=== PATIENT | male | born 1955 | race African-American/Black ===

== ENCOUNTER 2016-10-29 06:14 | Emergency (ER) | payer SELFPAY ==
[~2016-10-29 06:14] MED LIST: AMLO10 PO; AMLO5TAB22 PO; CARV12.5 PO; FURO1TAB60 PO; GLIP5TAB8 PO; HYDR50TA15 PO; LIPI40TA PO; NITR0.4S SL; POTA-243 PO
[2016-10-29 06:16] VITALS: BP 249/120; PULSE 104; RESP 18; TEMP 98.5; O2SAT 97
--- NOTE | 2016-10-29 09:18 | PD ---
HPI Chief Complaint: Edema Time Seen by Provider: 09:10 Travel History International Travel<30 days: No Contact w/Intl Traveler<30days: No Traveled to known affect area: No History of Present Illness HPI This is a 61-year-old male who has a history of hypertension who presents to the emergency department with swelling in his hands but his son noticed this morning, constant, moderate severity with no associated pain. He's been out of multiple blood pressure medications for the past several days. His blood pressure was high this morning. He denies any chest pain or shortness of breath. PFSH Past Medical History Cardiovascular Problems: Yes (HTN) Diabetes: Yes Immunizations Current: Yes Social History Alcohol Use: No Tobacco Use: No Substance Use: No Allergies-Medications (Allergen,Severity, Reaction): Coded Allergies: No Known Allergies (Unverified , 10/29/16) Reported Meds & Prescriptions Reported Meds & Active Scripts Active Reported Potassium Chloride CR (Potassium Chloride) 10 Meq Tab 10 Meq PO DAILY Hydralazine (Hydralazine HCl) 25 Mg Tab 50 Mg PO QID Take with a meal Furosemide 40 Mg Tab 40 Mg PO BID Glipizide 5 Mg Tab 5 Mg PO BIDAC Take 30 minutes before a meal Amlodipine (Amlodipine Besylate) 10 Mg Tab 10 Mg PO DAILY Review of Systems Except as stated in HPI: all other systems reviewed are Neg Physical Exam Narrative GENERAL:Well appearing, no acute distress SKIN: Warm and dry. HEAD: Atraumatic. Normocephalic. EYES: Pupils equal and round. No injection or drainage. ENT: Moist mucous membranes NECK: Trachea midline. CARDIOVASCULAR: Regular rate and rhythm. No murmur appreciated. RESPIRATORY: Clear to auscultation. Breath sounds equal bilaterally. GASTROINTESTINAL: Abdomen soft, non-tender, nondistended. MUSCULOSKELETAL: No obvious deformities. Swelling in bilateral hands. NEUROLOGICAL: Awake and alert. No obvious cranial nerve deficits. Moving all extremities. PSYCHIATRIC: Appropriate mood and affect; insight and judgment normal. Data Data Last Documented VS Vital Signs Date Time Temp Pulse Resp B/P Pulse Ox O2 Delivery O2 Flow Rate FiO2 10/29/16 09:31 90 16 195/91 98 Room Air 10/29/16 06:16 98.5 MDM Medical Decision Making Medical Screen Exam Complete: Yes Emergency Medical Condition: Yes Interpretation(s) Hypertensive Differential Diagnosis Arthritis, edema, hypertensive urgency Narrative Course This is a 61-year-old male who presents to the emergency department because he' s run out of his medications and he has some swelling in his hands. He is otherwise well-appearing with a normal neurologic exam. He is quite hypertensive with a blood pressure of 249/120. I will reinitiate him on his home blood pressure medications. He has no chest pain at this time. I think he can be discharged home. Diagnosis Primary Impression: Hypertension Qualified Code: I10 - Essential hypertension Patient Instructions: General Instructions Additional Instructions: If you develop severe chest pain, shortness of breath, sweating, lightheadedness , dizziness or difficulty breathing return to the emergency department immediately. Followup with your primary care physician in 2-3 days if your symptoms are not resolved. Med/Other Pt SpecificInfo: Prescription(s) given Scripts Glipizide 5 Mg Tab5 Mg PO DAILY #30 TAB Ref 0 Take 30 minutes before a meal Prov:Rosy Rousseau MD 10/29/16 Potassium Chloride ER 10 Meq Cap10 Meq PO DAILY #30 CAP Ref 0 Prov:Rosy Rousseau MD 10/29/16 Furosemide 40 Mg Tab40 Mg PO DAILY #30 TAB Ref 0 Prov:Rosy Rousseau MD 10/29/16 Amlodipine 10 Mg Tab10 Mg PO DAILY #30 TAB Ref 0 Prov:Rosy Rousseau MD 10/29/16 Disposition: 01 DISCHARGE HOME Condition: Stable Rosy Rousseau MD Oct 29, 2016 09:18
[2016-10-29] MEDS ORDERED: AMLO10TA2 PO ×2 (09:27→09:34)
[2016-10-29] MEDS ORDERED: GLIP5TAB8 PO ×2 (09:27→09:34)
[2016-10-29 09:31] VITALS: BP 195/91; PULSE 90; RESP 16; O2SAT 98
[2016-10-29] MEDS ORDERED: HYDR25TA35 PO (09:31)
[2016-10-29] MEDS ORDERED: POTA10TA8 PO (09:31)
[2016-10-29] MEDS ORDERED: FURO40TA PO ×2 (09:31→09:34)
[2016-10-29] MEDS ORDERED: POTA10CA PO (09:34)
[2016-11-16] MEDS ORDERED: AMLO10 PO (10:59)
[2016-11-16] MEDS ORDERED: POTA-243 PO (11:03)
[2016-11-16] MEDS ORDERED: LIPI40TA PO (11:03)
[2016-11-16] MEDS ORDERED: HYDR50TA15 PO (11:03)
[2016-11-23] MEDS ORDERED: LIPI40TA PO (08:48)
[2016-11-23] MEDS ORDERED: HYDR50TA15 PO (08:49)
[2016-11-25] MEDS ORDERED: GLIP5TAB8 PO (09:50)
[2016-11-25] MEDS ORDERED: CARV12.5 PO (09:50)
[2016-12-09] MEDS ORDERED: LISI40TA PO (11:24)
[2016-12-09] MEDS ORDERED: BAYETES (11:27)
[2016-12-09] MEDS ORDERED: FURO40TA PO (11:28)
[2017-01-13] MEDS ORDERED: HYDR50TA15 PO (11:25)
[2017-01-13] MEDS ORDERED: ATOR40TA16 PO (11:28)
[2017-01-15] MEDS ORDERED: FURO40TA PO (11:23)
[2017-01-15] MEDS ORDERED: CLON0.1T PO (11:40)
[2017-02-03] MEDS ORDERED: HYDR-3801 PO (11:20)
[2017-02-03] MEDS ORDERED: CLON0.1T PO (11:38)
[2017-02-03] MEDS ORDERED: CARV12.5 PO (11:40)
[2017-02-03] MEDS ORDERED: ATOR40TA16 PO (11:40)
[2017-02-17] MEDS ORDERED: POTA10TA2 PO (11:11)
[2017-02-17] MEDS ORDERED: HYDR-3801 PO (11:23)
== END 2016-10-29 10:23 | disposition home or self-care (01) ==
LOC: MERGE 06:14 → NEPE 06:14
DX: I10 Essential (primary) hypertension (principal); M79.89 Other specified soft tissue disorders; E11.9 Type 2 diabetes mellitus without complications
CPT/HCPCS: 99284

== ENCOUNTER → 2016-11-16 | Outpatient (CLI) | payer OTHER ==
[~2016-11-16] MED LIST changes: +ACET250T3 PO; +AMLO10TA2 PO; -AMLO5TAB22 PO; +ATOR40TA16 PO; +BAYETES; +BRIM0.2S4 EACH EYE; +CLON0.1T PO; +DORZ2SOL7 EACH EYE; +FURO40TA PO; +HYDR-3801 PO; +HYDR25TA35 PO; +LATA0.002 EACH EYE; +LISI40TA PO; +POTA10CA PO; +POTA10TA2 PO; +POTA10TA8 PO
[2016-11-16 11:56] LABS: AUTOMATED NEUTROPHIL # 9.4 TH/MM3 (1.8-7.7); BASOPHIL # 0.1 TH/MM3 (0-0.2); BASOPHIL % 0.8 % (0.0-2.0); EOSINOPHIL # 0.2 TH/MM3 (0-0.4); EOSINOPHIL % 1.5 % (0.0-4.0); HEMATOCRIT 33.7 % (39.0-51.0); LYMPH % 24.3 % (9.0-44.0); LYMPHOCYTE # 3.4 TH/MM3 (1.0-4.8); MEAN CELL VOLUME 81.5 FL (80.0-100.0); MEAN CORPUSCULAR HEMOGLOBIN 26.4 PG (27.0-34.0); MEAN CORPUSCULAR HGB CONC 32.4 % (32.0-36.0); MONO % 5.3 % (0.0-8.0); NEUT % 68.1 % (16.0-70.0); PLATELET COUNT 316 TH/MM3 (150-450); RED BLOOD COUNT 4.13 MIL/MM3 (4.50-5.90); RED CELL DISTRIBUTION WIDTH 16.7 % (11.6-17.2); WHITE BLOOD COUNT 13.9 TH/MM3 (4.0-11.0)
[2016-11-16 11:58] LABS: HEMO FLAGS AUTO DIFF
[2016-11-16 12:46] LABS: SCAN/DIFF AUTO DIFF CONFIRMED
[2016-11-16 12:54] LABS: ALKALINE PHOSPHATASE 99 U/L (45-117); ALT (GPT) 70 U/L (12-78); ANION GAP 8 MEQ/L (5-15); AST (GOT) 21 U/L (15-37); BICARBONATE 27.4 MEQ/L (21.0-32.0); BLOOD UREA NITROGEN 39 MG/DL (7-18); CHLORIDE 108 MEQ/L (98-107); GLOMERULAR FILTRATION RATE 34 ML/MIN (>89); GLUCOSE,FASTING 131 MG/DL (74-99); HDL CHOLESTEROL 39.5 MG/DL (40.0-60.0); LDL CHOLESTEROL 90 MG/DL (0-99); POTASSIUM 3.9 MEQ/L (3.5-5.1); SODIUM (NA) 143 MEQ/L (136-145); TOTAL BILIRUBIN ADULT 0.3 MG/DL (0.2-1.0)
[2016-11-16 13:20] LABS: HEMOGLOBIN A1a 1.2 %; HEMOGLOBIN A1b 0.9 %; HEMOGLOBIN Ao 81.4 %; HEMOGLOBIN F 1.1 %; HEMOGLOBIN LA1C 2.3 %; HEMOGLOBIN P3 4.8 %
== END ==
LOC: CLAB 11:38
PROVIDERS: ATTEND Family Medicine
DX: E11.9 Type 2 diabetes mellitus without complications (principal); I10 Essential (primary) hypertension; I50.9 Heart failure, unspecified; S37.009A Unspecified injury of unspecified kidney, initial encounter
CPT/HCPCS: 36415; 80053; 80061; 83036; 84443; 85025

== ENCOUNTER → 2016-11-25 | Outpatient (CLI) | payer OTHER ==
[2016-11-25 11:25] LABS: BICARBONATE 28.2 MEQ/L (21.0-32.0); POTASSIUM 3.6 MEQ/L (3.5-5.1)
== END ==
LOC: CLAB 10:27
PROVIDERS: ATTEND Family Medicine
DX: N28.9 Disorder of kidney and ureter, unspecified (principal)
CPT/HCPCS: 36415; 80048

== ENCOUNTER → 2016-11-30 | Outpatient (CLI) | payer OTHER ==
[~2016-11-30] MED LIST changes: -AMLO10 PO; -FURO1TAB60 PO; -LIPI40TA PO; -POTA10CA PO; -POTA10TA8 PO
== END ==
LOC: CLAB 15:42
PROVIDERS: ATTEND Family Medicine
DX: N28.9 Disorder of kidney and ureter, unspecified (principal); E11.9 Type 2 diabetes mellitus without complications
CPT/HCPCS: 84157

== ENCOUNTER → 2017-01-13 | Outpatient (CLI) | payer OTHER ==
[2017-01-13 12:36] LABS: BICARBONATE 26.7 MEQ/L (21.0-32.0); POTASSIUM 4.5 MEQ/L (3.5-5.1)
== END ==
LOC: CLAB 11:53
PROVIDERS: ATTEND Family Medicine
DX: N19 Unspecified kidney failure (principal)
CPT/HCPCS: 36415; 80069

== ENCOUNTER 2017-02-13 10:25 | Emergency (ER) | payer SELFPAY ==
[~2017-02-13] VITALS: Ht 190.5 cm; Wt 75.0 kg
[~2017-02-13 10:25] MED LIST changes: -ACET250T3 PO; -BRIM0.2S4 EACH EYE; -DORZ2SOL7 EACH EYE; -HYDR25TA35 PO; -HYDR50TA15 PO; -LATA0.002 EACH EYE; -POTA10TA2 PO
[2017-02-13 10:27] VITALS: BP 240/109; PULSE 92; RESP 24; TEMP 98.9; O2SAT 98
--- NOTE | 2017-02-13 10:51 | PD ---
HPI Chief Complaint: Eye Problems/Injury Time Seen by Provider: 10:50 Travel History International Travel<30 days: No Contact w/Intl Traveler<30days: No Traveled to known affect area: No History of Present Illness HPI 61-year-old male came to the emergency room with history of blindness. Patient says that he has been having vision issues on and off since last Wednesday. His son says that this morning he found his father on the floor crying saying that he cannot see anything. Patient has history of diabetes and hypertension. He was seen by an protozoologist 2 months ago he says and was told that nothing could be done until his blood sugar comes down. Patient has never had issues with blindness in the past. His blood pressure upon arrival was 225 systolic. Patient is not complaining of any pain. Does not appear to be in any significant distress. He says his vision is blurry. However when I asked him to cover his left eye patient said he saw complete darkness from his right eye. And when he covered his right eye he just saw a hand movement which he said it looked blurry. [facility] Past Medical History Narrative Medical List of his past medical, surgical, social and family history was reviewed from the nursing note. Cancer: No Cardiovascular Problems: Yes Congestive Heart Failure: Yes Diabetes: Yes Patient Takes Glucophage: Yes Diminished Hearing: No Endocrine: No Genitourinary: No Hypertension: Yes Immune Disorder: No Neurologic: No Psychiatric: No Reproductive: No Immunizations Current: Yes Sickle Cell Disease: No Past Surgical History Other Surgery: Yes (right leg ) Social History Alcohol Use: No Tobacco Use: No Substance Use: No Allergies-Medications (Allergen,Severity, Reaction): Coded Allergies: No Known Allergies (Verified , 02/15/17) Comments No known drug allergies. Reported Meds & Prescriptions Reported Meds & Active Scripts Active Brimonidine Opth Drops (Brimonidine Tartrate) 0.2% Soln 1 Drop EACH EYE TID Latanoprost Opth Drops (Latanoprost) 0.005% Drops 1 Drop EACH EYE HS Refrigerate until opened. Cosopt Opth Drops (Dorzolamide-Timolol Opth Drops) 22.3-6.8 Mg/Ml Soln 1 Drop EACH EYE BID Acetazolamide 250 Mg Tab 250 Mg PO TID Atorvastatin (Atorvastatin Calcium) 40 Mg Tab 40 Mg PO HS Coreg (Carvedilol) 12.5 Mg Tab 25 Mg PO Q12HR Clonidine (Clonidine HCl) 0.1 Mg Tab 0.1 Mg PO BID Lisinopril 40 Mg Tab 40 Mg PO DAILY Glipizide 5 Mg Tab 5 Mg PO BIDAC Take 30 minutes before a meal Nitrostat SL (Nitroglycerin) 0.4 Mg Subl 0.4 Mg SL Q5M Reported Hydralazine (Hydralazine HCl) 100 Mg Tab 50 Mg PO Q6HR Take with meals Amlodipine (Amlodipine Besylate) 10 Mg Tab 10 Mg PO DAILY Narrative Medication List of his home medications reviewed from the nursing note. Review of Systems Except as stated in HPI: all other systems reviewed are Neg Physical Exam Narrative GENERAL: Awake, alert, no obvious distress SKIN: Focused skin assessment warm/dry. HEAD: Atraumatic. Normocephalic. EYES: Right pupil is oval, 5 mm in diameter and nonreactive to light. Cornea and lens in the back appears hazy. Left pupil 3 mm reactive to light. No scleral icterus. No injection or drainage. Right eye has no light perception, left eye has hand movement perception ENT: No nasal bleeding or discharge. Mucous membranes pink and moist. Poor dentition, gingival hypertrophy NECK: Trachea midline. No JVD. CARDIOVASCULAR: Regular rate and rhythm. No murmur appreciated. RESPIRATORY: No accessory muscle use. Clear to auscultation. Breath sounds equal bilaterally. GASTROINTESTINAL: Abdomen soft, non-tender, nondistended. Hepatic and splenic margins not palpable. MUSCULOSKELETAL: No obvious deformities. No clubbing. No cyanosis. No edema. NEUROLOGICAL: Awake and alert. No obvious cranial nerve deficits. Motor grossly within normal limits. Normal speech. PSYCHIATRIC: Appropriate mood and affect; insight and judgment normal. Data Data Last Documented VS Vital Signs Date Time Temp Pulse Resp B/P Pulse Ox O2 Delivery O2 Flow Rate FiO2 02/13/17 12:39 69 18 191/94 98 Room Air 02/13/17 10:27 98.9 Orders Electrocardiogram (02/13/17 10:56) Basic Metabolic Panel (Bmp) (02/13/17 10:56) Complete Blood Count With Diff (02/13/17 10:56) Prothrombin Time / Inr (Pt) (02/13/17 10:56) Ecg Monitoring (02/13/17 10:56) Bilateral Bp Monitoring (02/13/17 10:56) Iv Access Insert/Monitor (02/13/17 10:56) Oximetry (02/13/17 10:56) Oxygen Administration (02/13/17 10:56) Sodium Chloride 0.9% Flush (Ns Flush) (02/13/17 11:00) Labetalol Inj (Trandate Inj) (02/13/17 11:00) Ct Brain W/O Iv Contrast(Rout) (02/13/17 ) Acetazolamide (Diamox) (02/13/17 11:15) Timolol 0.5% Opth Soln (Timoptic 0.5% Op (02/13/17 11:15) Mannitol Inj (Mannitol Inj) (02/13/17 11:30) Brimonidine 0.2% Opth Soln (Alphagan 0.2 (02/13/17 11:30) Dorzol-Timol 2-0.5% Opth Soln (Cosopt 2- (02/13/17 11:30) Latanoprost 0.005% Opth Soln (Xalatan 0. (02/13/17 12:15) Acetazolamide (Diamox) (02/13/17 12:15) Labs Laboratory Tests Test 02/13/17 11:17 White Blood Count 11.2 TH/MM3 Red Blood Count 3.84 MIL/MM3 Hemoglobin 10.7 GM/DL Hematocrit 31.8 % Mean Corpuscular Volume 82.9 FL Mean Corpuscular Hemoglobin 27.9 PG Mean Corpuscular Hemoglobin 33.6 % Concent Red Cell Distribution Width 14.7 % Platelet Count 325 TH/MM3 Mean Platelet Volume 7.6 FL Neutrophils (%) (Auto) 66.2 % Lymphocytes (%) (Auto) 24.4 % Monocytes (%) (Auto) 6.1 % Eosinophils (%) (Auto) 2.2 % Basophils (%) (Auto) 1.1 % Neutrophils # (Auto) 7.4 TH/MM3 Lymphocytes # (Auto) 2.7 TH/MM3 Monocytes # (Auto) 0.7 TH/MM3 Eosinophils # (Auto) 0.3 TH/MM3 Basophils # (Auto) 0.1 TH/MM3 CBC Comment DIFF FINAL Differential Comment Prothrombin Time 10.5 SEC Prothromb Time International 1.0 RATIO Ratio Sodium Level 145 MEQ/L Potassium Level 3.9 MEQ/L Chloride Level 112 MEQ/L Carbon Dioxide Level 28.0 MEQ/L Anion Gap 5 MEQ/L Blood Urea Nitrogen 23 MG/DL Creatinine 1.67 MG/DL Estimat Glomerular Filtration 51 ML/MIN Rate Random Glucose 112 MG/DL Calcium Level 9.2 MG/DL MDM Medical Decision Making Medical Screen Exam Complete: Yes Emergency Medical Condition: Yes Medical Record Reviewed: Yes Interpretation(s) Twelve-lead EKG was reviewed by me. Normal sinus rhythm, normal axis, LVH, LV strain. Heart rate of 86 bpm. Differential Diagnosis Angle-closure glaucoma, blindness, CVA Narrative Course 11:47 AM at this point the working diagnosis is angle-closure glaucoma especially of the right eye. The intraocular pressure in the right eye is between 60-64 and the intraocular pressure in the left eye is between 53-57. Patient is given IV mannitol, by mouth Diamox, Timolol eyedrops, Brimonidine eye drops and Dorzolamide eye drops both eyes. Currently there is no ophthalmology registered medical transcriptionist. I put a call out to the transfer center at [facility] expecting to transfer this patient emergently. Awaiting the transfer center to get me a hold of their protozoologist. Patient was also given IV labetalol to bring the blood pressure down. 12:46 PM I discussed the case at length with Dr. Quintero who is the protozoologist registered medical transcriptionist at [facility] today. As per him patient has probably completely lost his vision permanently from his right eye after he listened to the whole case. As per him this has been probably going on for years and acutely worsened. He said it was a tragic case but he would be happy to see this patient in his office today if the family can drive him to [place]. He gave his cell phone number and his office address and asked to be called before the patient comes in. He happily recommended not to transfer this patient since going to the emergency room will not achieve much and delay care. In case the family cannot bring him today, he said it was okay to have the patient be sent home with prescription medication that he gave a list of and follow-up on Wednesday. The protozoologist Dr. Rodney Baker will have her office open on Wednesday and he was okay with him following up with her locally. I gave this option to the son who just told me that he would prefer to drive the patient to see this protozoologist today. I will give him Dr. San's phone number and address of the office and I have asked him to call the protozoologist while he is on his way there. Patient will be discharged home on the prescription recommended by the protozoologist. However patient has renal insufficiency and acetazolamide might be limited in this circumstance. 1:31 PM repeat pressure in both eyes was 50 by Ananth-Pen. Procedures EKG Prior to Arrival: No Physician Communication Physician Communication Dr. San Diagnosis Primary Impression: Blindness of both eyes Additional Impressions: Acute angle-closure glaucoma, bilateral Angle-closure glaucoma, severe stage Malignant hypertension Renal insufficiency Referrals: Primary Care Physician Additional Instructions: Please follow-up with protozoologist Dr. Quintero in [place]. His cell phone number is [phone]. His office address is [address] [place] [address] please call his cell phone number before arriving so that he can be present in the office. Get the prescriptions filled that have been given to you. Med/Other Pt SpecificInfo: Prescription(s) given Scripts Brimonidine Opth Drops 0.2% Soln1 Drop EACH EYE TID #1 BOTTLE Ref 0 Prov:Anibal Haines MD 02/13/17 Latanoprost Opth Drops 0.005% Drops1 Drop EACH EYE HS #2.5 ML Ref 0 Refrigerate until opened. Prov:Anibal Haines MD 02/13/17 Dorzolamide-Timolol Opth Drops (Cosopt Opth Drops)22.3-6.8 Mg/Ml Soln1 Drop EACH EYE BID #1 BOTTLE Ref 0 Prov:Anibal Haines MD 02/13/17 Acetazolamide 250 Mg Ofm862 Mg PO TID #90 TAB Ref 0 Prov:Anibal Haines MD 02/13/17 Disposition: 01 DISCHARGE HOME Condition: Stable Anibal Haines MD Feb 13, 2017 10:50
[2017-02-13] MEDS ORDERED: SODIUM CHLORIDE 0.9% FLUSH 10 ML FLUSH IVF PRN (11:00)
[2017-02-13] MEDS ORDERED: LABETALOL HCL 100 MG/20 ML VIAL IV PUSH ONE (11:00)
[2017-02-13 11:14] VITALS: BP 181/86; PULSE 84; RESP 16; O2SAT 98
[2017-02-13] MEDS ORDERED: acetaZOLAMIDE 250 MG TAB PO ONE ×2 (11:15→12:15)
[2017-02-13] MEDS ORDERED: TIMOLOL MALEATE 0.5% OPHT SOLN 5 ML BTL RIGHT EYE ONE (11:15)
[2017-02-13 11:25] LABS: AUTOMATED NEUTROPHIL # 7.4 TH/MM3 (1.8-7.7); BASOPHIL # 0.1 TH/MM3 (0-0.2); BASOPHIL % 1.1 % (0.0-2.0); EOSINOPHIL # 0.3 TH/MM3 (0-0.4); EOSINOPHIL % 2.2 % (0.0-4.0); HEMATOCRIT 31.8 % (39.0-51.0); HEMO FLAGS DIFF FINAL; LYMPH % 24.4 % (9.0-44.0); LYMPHOCYTE # 2.7 TH/MM3 (1.0-4.8); MEAN CELL VOLUME 82.9 FL (80.0-100.0); MEAN CORPUSCULAR HEMOGLOBIN 27.9 PG (27.0-34.0); MEAN CORPUSCULAR HGB CONC 33.6 % (32.0-36.0); MONO % 6.1 % (0.0-8.0); NEUT % 66.2 % (16.0-70.0); PLATELET COUNT 325 TH/MM3 (150-450); RED BLOOD COUNT 3.84 MIL/MM3 (4.50-5.90); RED CELL DISTRIBUTION WIDTH 14.7 % (11.6-17.2); WHITE BLOOD COUNT 11.2 TH/MM3 (4.0-11.0)
[2017-02-13] MEDS ORDERED: DORZOLAMIDE/TIMOLOL OPTH SOLN 10 ML BTL EACH EYE ONE (11:30)
[2017-02-13] MEDS ORDERED: BRIMONIDINE TARTRATE 0.2% OPHT SOLN 5 ML BTL EACH EYE ONE (11:30)
[2017-02-13] MEDS ORDERED: MANNITOL 12.5 GM/50 ML VIAL IV ONE (11:30)
[2017-02-13 11:39] LABS: PROTHROMBIN TIME - PATIENT 10.5 SEC (9.8-11.6)
[2017-02-13 11:45] VITALS: BP 177/86; PULSE 79; RESP 18; O2SAT 98
[2017-02-13 12:07] VITALS: BP 182/87; PULSE 72; RESP 18; O2SAT 99
[2017-02-13] MEDS ORDERED: LATANOPROST 0.005% OPHT SOLN 2.5 ML BTL EACH EYE ONE (12:15)
[2017-02-13 12:20] LABS: POTASSIUM 3.9 MEQ/L (3.5-5.1)
[2017-02-13 12:37] VITALS: BP 209/98; PULSE 68; RESP 18; O2SAT 99
[2017-02-13 12:39] VITALS: BP 191/94; PULSE 69; RESP 18; O2SAT 98
[2017-02-13] MEDS ORDERED: ACET250T3 PO (12:55)
[2017-02-13] MEDS ORDERED: BRIM0.2S4 EACH EYE (12:55)
[2017-02-13] MEDS ORDERED: DORZ2SOL7 EACH EYE (12:55)
[2017-02-13] MEDS ORDERED: LATA0.002 EACH EYE (12:55)
--- NOTE | 2017-02-13 12:59 | EKG ---
Date Performed: 02/13/2017 Time Performed: 11:05:28 PTAGE: 61 years EKG: Sinus rhythm LEFT VENTRICULAR HYPERTROPHY AND ST-T CHANGE ABNORMAL ECG PREVIOUS TRACING : 08/16/2016 18.22 compared to the previous EKG no significant change DOCTOR: Hector Arana Interpretating Date/Time 02/13/2017 12:57:57
--- NOTE | 2017-02-13 13:10 | RADRPT ---
EXAM DATE/TIME: 02/13/2017 12:12 [facility] COMPARISON: No previous studies available for comparison. INDICATIONS : Vision changes. RADIATION DOSE: 56.35 CTDIvol (mGy) MEDICAL HISTORY : Hypertension. Diabetes mellitus type 2. SURGICAL HISTORY : None. ENCOUNTER: Initial ACUITY: 1 day PAIN SCALE: 0/10 LOCATION: cranial TECHNIQUE: Multiple contiguous axial images were obtained of the head. Using automated exposure control and adj ustment of the mA and/or kV according to patient size, radiation dose was kept as low as reasonably a chievable to obtain optimal diagnostic quality images. FINDINGS: CEREBRUM: Ventricles are normal in size. There is mild periventricular white matter low attenuation. There is c alcification along the anterior falx cerebri. No evidence of midline shift, mass lesion, hemorrhage or acute infarction. No extra-axial fluid collections are seen. POSTERIOR FOSSA: The cerebellum and brainstem demonstrate no abnormality. The 4th ventricle is midline. The cerebell opontine angle is unremarkable. EXTRACRANIAL: Visualized sinuses are clear. There is a subcutaneous soft tissue density mass along the right nasal bridge and medial to the right globe. It measures 1.4 x 1.2 cm. It causes no abnormality in the adjac ent bone. SKULL: The calvaria is intact. No evidence of skull fracture. CONCLUSION: 1. No acute intracranial abnormality is identified. There is mild periventricular white matter low at tenuation characteristic of chronic microvascular ischemia. 2. There is a subcutaneous soft tissue mass medial to the right orbit measuring up to 14 mm. Imaging features are nonspecific. It is not causing any invasion nor adjacent changes to the bone. Margarito Lopez MD on February 13, 2017 at 13:03 Board Certified Radiologist. This report was verified electronically.
[2017-02-17] MEDS ORDERED: POTA10TA2 PO (11:11)
[2017-02-17] MEDS ORDERED: HYDR-3801 PO (11:23)
== END 2017-02-13 13:46 | disposition home or self-care (01) ==
LOC: NEPD 10:25
DX: H54.0 Blindness, both eyes (principal); H40.213 Acute angle-closure glaucoma, bilateral; I10 Essential (primary) hypertension; N28.9 Disorder of kidney and ureter, unspecified; R94.31 Abnormal electrocardiogram [ECG] [EKG]; I50.9 Heart failure, unspecified; E11.8 Type 2 diabetes mellitus with unspecified complications
CPT/HCPCS: 70450; 80048; 85025; 85610; 93005; 96374; 96375; 99285; J2150

== ENCOUNTER → 2017-05-27 | Outpatient (CLI) | payer OTHER ==
[~2017-05-27] MED LIST changes: +ACET250T3 PO; -BAYETES; +BRIM0.2S4 EACH EYE; -CLON0.1T PO; +DORZ2SOL7 EACH EYE; -FURO40TA PO; +HYDR12.57 PO; +LATA0.002 EACH EYE; -POTA-243 PO; +POTA10TA2 PO
[2017-05-27 12:58] LABS: ANION GAP 7 MEQ/L (5-15); BICARBONATE 20.2 MEQ/L (21.0-32.0); BLOOD UREA NITROGEN 19 MG/DL (7-18); CHLORIDE 117 MEQ/L (98-107); GLOMERULAR FILTRATION RATE 49 ML/MIN (>89); GLUCOSE,FASTING 99 MG/DL (74-99); POTASSIUM 3.6 MEQ/L (3.5-5.1); SODIUM (NA) 144 MEQ/L (136-145)
[2017-05-27 13:00] LABS: ALT (GPT) 22 U/L (12-78); AST (GOT) 11 U/L (15-37)
[2017-05-27 13:02] LABS: ALKALINE PHOSPHATASE 86 U/L (45-117); HDL CHOLESTEROL 42.4 MG/DL (40.0-60.0); LDL CHOLESTEROL 72 MG/DL (0-99); TOTAL BILIRUBIN ADULT 0.4 MG/DL (0.2-1.0)
[2017-05-27 16:16] LABS: HEMOGLOBIN A1b 1.5 %; HEMOGLOBIN Ao 85.3 %; HEMOGLOBIN P3 5.4 %
== END ==
LOC: CLAB 12:05
PROVIDERS: ATTEND Nurse Practitioner Family
DX: E11.9 Type 2 diabetes mellitus without complications (principal); N18.9 Chronic kidney disease, unspecified; E78.5 Hyperlipidemia, unspecified
CPT/HCPCS: 36415; 80053; 80061; 83036

== ENCOUNTER 2017-07-13 15:13 | Emergency (ER) | payer OTHER ==
[2017-07-13] VITALS (7 sets, daily range): BP systolic 182–210; BP diastolic 88–111; PULSE 89–111; RESP 12–18; TEMP 98.2–98.7; O2SAT 99–100
[~2017-07-13 15:13] MED LIST changes: -POTA10TA2 PO
[2017-07-13] MEDS ORDERED: IOHEXOL 350 MG/ML 10 ML VIAL (for RAD DIAG) IVCONTRAST ONE (15:14)
[2017-07-13] MEDS ORDERED: hydrALAZINE HCL 20 MG/ML VIAL IV PUSH ONE (16:00)
--- NOTE | 2017-07-13 16:24 | RADRPT ---
EXAM DATE/TIME: 07/13/2017 15:57 [facility] COMPARISON: CHEST SINGLE AP, August 16, 2016, 6:00. INDICATIONS : Chest pain. MEDICAL HISTORY : Congestive heart failure. Hypertension. Dsypnea. SURGICAL HISTORY : None. ENCOUNTER: Initial ACUITY: 1 day PAIN SCORE: 4/10 LOCATION: Bilateral chest FINDINGS: A single view of the chest demonstrates the lungs to be symmetrically aerated without evidence of mas s, infiltrate or effusion. The cardiomediastinal contours are unremarkable. Osseous structures are intact. CONCLUSION: No acute disease. Michael Sheffield Jr., MD on July 13, 2017 at 16:22 Board Certified Radiologist. This report was verified electronically.
[2017-07-13 16:34] LABS: AUTOMATED NEUTROPHIL # 8.2 TH/MM3 (1.8-7.7); BASOPHIL # 0.1 TH/MM3 (0-0.2); BASOPHIL % 0.4 % (0.0-2.0); EOSINOPHIL # 0.1 TH/MM3 (0-0.4); EOSINOPHIL % 0.9 % (0.0-4.0); HEMATOCRIT 34.9 % (39.0-51.0); HEMO FLAGS DIFF FINAL; LYMPH % 27.4 % (9.0-44.0); LYMPHOCYTE # 3.4 TH/MM3 (1.0-4.8); MEAN CELL VOLUME 88.1 FL (80.0-100.0); MEAN CORPUSCULAR HEMOGLOBIN 29.7 PG (27.0-34.0); MEAN CORPUSCULAR HGB CONC 33.7 % (32.0-36.0); MONO % 5.8 % (0.0-8.0); NEUT % 65.5 % (16.0-70.0); PLATELET COUNT 339 TH/MM3 (150-450); RED BLOOD COUNT 3.96 MIL/MM3 (4.50-5.90); RED CELL DISTRIBUTION WIDTH 15.8 % (11.6-17.2); WHITE BLOOD COUNT 12.5 TH/MM3 (4.0-11.0)
--- NOTE | 2017-07-13 16:37 | RADRPT ---
EXAM DATE/TIME: 07/13/2017 16:05 [facility] COMPARISON: CT BRAIN W/O CONTRAST, February 13, 2017, 12:12. INDICATIONS : Patient complains of headache. RADIATION DOSE: 56.35 CTDIvol (mGy) MEDICAL HISTORY : Cardiovascular disease. Congestive heart failure. Hypertension.AAA, diabetic SURGICAL HISTORY : None. ENCOUNTER: Initial ACUITY: 1 day PAIN SCALE: 5/10 LOCATION: cranial TECHNIQUE: Multiple contiguous axial images were obtained of the head. Using automated exposure control and adj ustment of the mA and/or kV according to patient size, radiation dose was kept as low as reasonably a chievable to obtain optimal diagnostic quality images. DICOM format image data is available electro nically for review and comparison. FINDINGS: CEREBRUM: The ventricles are normal for age. No evidence of midline shift, mass lesion, hemorrhage or acute in farction. No extra-axial fluid collections are seen. POSTERIOR FOSSA: The cerebellum and brainstem are intact. The 4th ventricle is midline. The cerebellopontine angle i s unremarkable. EXTRACRANIAL: The visualized portion of the orbits is intact. SKULL: The calvaria is intact. No evidence of skull fracture. CONCLUSION: 1. No acute intracranial abnormality identified. Dimas Hennessy MD on July 13, 2017 at 16:21 Board Certified Radiologist. This report was verified electronically.
[2017-07-13 17:33] LABS: ANION GAP 11 MEQ/L (5-15); AST (GOT) 10 U/L (15-37); BICARBONATE 19.5 MEQ/L (21.0-32.0); BLOOD UREA NITROGEN 22 MG/DL (7-18); CHLORIDE 114 MEQ/L (98-107); GLOMERULAR FILTRATION RATE 63 ML/MIN (>89); POTASSIUM 3.1 MEQ/L (3.5-5.1); SODIUM (NA) 144 MEQ/L (136-145)
[2017-07-13 17:39] LABS: ALKALINE PHOSPHATASE 75 U/L (45-117); ALT (GPT) 27 U/L (12-78); TOTAL BILIRUBIN ADULT 0.3 MG/DL (0.2-1.0)
[2017-07-13] MEDS ORDERED: HYDR-3799 PO (19:30)
[2017-07-13] MEDS ORDERED: AMLO10TA2 PO (19:30)
--- NOTE | 2017-07-13 19:30 | PD ---
HPI Chief Complaint: Headache Time Seen by Provider: 15:46 Travel History International Travel<30 days: No Contact w/Intl Traveler<30days: No Traveled to known affect area: No History of Present Illness HPI This is a 61-year-old male who presents to the emergency department with nausea and vomiting that started last evening, intermittent, moderate severity associated with some pain in his neck has persisted till this morning. Currently he feels back to normal. He denies any abdominal pain, fevers or chills. He can't tell me what blood pressure medications he takes or if he filled them recently. He denies any recent fevers or chills. He's been having normal bowel movements. PFSH Past Medical History Cancer: No Cardiovascular Problems: Yes (CAD; [place]) Congestive Heart Failure: Yes Diabetes: Yes Patient Takes Glucophage: No Diminished Hearing: No Endocrine: No Genitourinary: No Hypertension: Yes Immune Disorder: No Neurologic: No Psychiatric: No Reproductive: No Immunizations Current: Yes Sickle Cell Disease: No ?: Not Past Surgical History Other Surgery: Yes (right leg ) Social History Alcohol Use: No Tobacco Use: No Substance Use: No Allergies-Medications (Allergen,Severity, Reaction): Coded Allergies: No Known Allergies (Verified , 06/04/17) Reported Meds & Prescriptions Reported Meds & Active Scripts Active Lisinopril 40 Mg Tab 40 Mg PO DAILY Atorvastatin (Atorvastatin Calcium) 40 Mg Tab 40 Mg PO HS Coreg (Carvedilol) 12.5 Mg Tab 25 Mg PO Q12HR Glipizide 5 Mg Tab 5 Mg PO BIDAC Take 30 minutes before a meal Amlodipine (Amlodipine Besylate) 10 Mg Tab 10 Mg PO DAILY Hydrochlorothiazide 12.5 Mg Cap 12.5 Mg PO BID Acetazolamide 250 Mg Tab 250 Mg PO QID Brimonidine Opth Drops (Brimonidine Tartrate) 0.2% Soln 1 Drop EACH EYE TID Latanoprost Opth Drops (Latanoprost) 0.005% Drops 1 Drop EACH EYE HS Refrigerate until opened. Cosopt Opth Drops (Dorzolamide-Timolol Opth Drops) 22.3-6.8 Mg/Ml Soln 1 Drop EACH EYE BID Nitrostat SL (Nitroglycerin) 0.4 Mg Subl 0.4 Mg SL Q5M Reported Hydralazine (Hydralazine HCl) 100 Mg Tab 50 Mg PO Q6HR Take with meals Review of Systems Except as stated in HPI: all other systems reviewed are Neg Physical Exam Narrative GENERAL: Frail male older appearing than stated age. SKIN: Focused skin assessment warm and dry. HEAD: Atraumatic. Normocephalic. EYES: Pupils equal and round. No injection or drainage. ENT: Moist mucous membranes NECK: Trachea midline. CARDIOVASCULAR: Regular rate and rhythm. No murmur appreciated. RESPIRATORY: Clear to auscultation. Breath sounds equal bilaterally. GASTROINTESTINAL: Abdomen soft, non-tender, nondistended. MUSCULOSKELETAL: No obvious deformities. NEUROLOGICAL: Awake and alert. No obvious cranial nerve deficits. Moving all extremities. PSYCHIATRIC: Appropriate mood and affect; insight and judgment normal. Data Data Last Documented VS Vital Signs Date Time Temp Pulse Resp B/P (MAP) Pulse Ox O2 Delivery O2 Flow Rate FiO2 07/13/17 16:53 90 14 182/88 (119) 100 Room Air 07/13/17 15:40 98.3 Orders Orders Electrocardiogram (07/13/17 15:54) Complete Blood Count With Diff (07/13/17 15:54) Comprehensive Metabolic Panel (07/13/17 15:54) Troponin I (07/13/17 15:54) Chest, Single Ap (07/13/17 15:54) Ct Brain W/O Iv Contrast(Rout) (07/13/17 ) Lipase (07/13/17 15:54) Hydralazine Inj (Apresoline Inj) (07/13/17 16:00) Cta Thor Abd Aorta W Iv C W3d (07/13/17 ) Labs Laboratory Tests Test 07/13/17 15:30 07/13/17 16:52 White Blood Count 12.5 TH/MM3 Red Blood Count 3.96 MIL/MM3 Hemoglobin 11.7 GM/DL Hematocrit 34.9 % Mean Corpuscular Volume 88.1 FL Mean Corpuscular Hemoglobin 29.7 PG Mean Corpuscular Hemoglobin Concent 33.7 % Red Cell Distribution Width 15.8 % Platelet Count 339 TH/MM3 Mean Platelet Volume 9.1 FL Neutrophils (%) (Auto) 65.5 % Lymphocytes (%) (Auto) 27.4 % Monocytes (%) (Auto) 5.8 % Eosinophils (%) (Auto) 0.9 % Basophils (%) (Auto) 0.4 % Neutrophils # (Auto) 8.2 TH/MM3 Lymphocytes # (Auto) 3.4 TH/MM3 Monocytes # (Auto) 0.7 TH/MM3 Eosinophils # (Auto) 0.1 TH/MM3 Basophils # (Auto) 0.1 TH/MM3 CBC Comment DIFF FINAL Differential Comment Blood Urea Nitrogen 22 MG/DL Creatinine 1.39 MG/DL Random Glucose 126 MG/DL Total Protein 6.9 GM/DL Albumin 3.0 GM/DL Calcium Level 8.7 MG/DL Alkaline Phosphatase 75 U/L Aspartate Amino Transf (AST/SGOT) 10 U/L Alanine Aminotransferase (ALT/SGPT) 27 U/L Total Bilirubin 0.3 MG/DL Sodium Level 144 MEQ/L Potassium Level 3.1 MEQ/L Chloride Level 114 MEQ/L Carbon Dioxide Level 19.5 MEQ/L Anion Gap 11 MEQ/L Estimat Glomerular Filtration Rate 63 ML/MIN Troponin I 0.03 NG/ML Lipase 116 U/L MDM Medical Decision Making Medical Screen Exam Complete: Yes Emergency Medical Condition: Yes Interpretation(s) Afebrile, tachycardic, hypertensive Leukocytosis Mild anemia Mild hypokalemia Troponin is normal Chest x-rays reassuring CT of the head is normal Differential Diagnosis Subarachnoid hemorrhage, intracranial hemorrhage, electrolyte abnormality, hypertensive urgency, hypertensive emergency Narrative Course This is a 61-year-old male who presents to the emergency department with atypical symptoms of nausea, vomiting, headache and neck pain. CT was obtained which was reassuring. He was placed on a monitor and an IV was established. Labs are reassuring. He was given a dose of hydralazine which he takes at home. His blood pressure improved. Given the atypical nature of his symptoms I ordered a CTA to rule out aortic dissection. If this is reassuring at think the patient can be discharged home and we can attribute his symptoms to hypertensive urgency. Patient will be prescribed his home blood pressure medications and was given a referral to [facility]. Diagnosis Primary Impression: Hypertensive urgency Patient Instructions: General Instructions Additional Instructions: If you develop severe chest pain, shortness of breath, sweating, lightheadedness , dizziness or difficulty breathing return to the emergency department immediately. Followup with your primary care physician in 2-3 days if your symptoms are not resolved. Med/Other Pt SpecificInfo: Prescription(s) given Scripts Hydralazine HCl (Hydralazine HCl) 25 Mg Tablet 50 MG PO QID for Blood Pressure Management, #120 TAB 0 Refills Prov: Rosy Rousseau MD 07/13/17 Amlodipine (Amlodipine) 10 Mg Tab 10 MG PO DAILY for Blood Pressure Management, #30 TAB 0 Refills Prov: Rosy Rousseau MD 07/13/17 Disposition: 01 DISCHARGE HOME Condition: Stable Roys Rousseau MD Jul 13, 2017 19:30
--- NOTE | 2017-07-13 20:54 | RADRPT ---
EXAM DATE/TIME: 07/13/2017 19:09 [facility] COMPARISON: No previous studies available for comparison. INDICATIONS : Posterior headache radiating to right neck IV CONTRAST: 99 cc Omnipaque 350 (iohexol) IV RADIATION DOSE: 14.53 CTDIvol (mGy) MEDICAL HISTORY : Cardiovascular disease. Congestive heart failure. Hypertension.Aneurysm,afib,dvt,diabetes SURGICAL HISTORY : None. ENCOUNTER: Initial ACUITY: 1 day PAIN SCALE: 6/10 LOCATION: Aorta gram TECHNIQUE: Volumetric scanning was performed using a multi-row detector CT scanner. The data was post processed with a variety of visualization algorithms including full volume maximum intensity projection, multi -planar sliding thin slab reformation, curved planar reformation, and surface rendering techniques. Using automated exposure control and adjustment of the mA and/or kV according to patient size, radiat ion dose was kept as low as reasonably achievable to obtain optimal diagnostic quality images. DICOM format image data is available electronically for review and comparison. FINDINGS: LUNGS: There is no consolidation or pneumothorax. No concerning pulmonary nodule is visualized. No pleural fluid is present. MEDIASTINUM: No abnormally enlarged lymph nodes by CT criteria. No axillary or hilar abnormalities are identified. ABDOMEN: The liver and spleen are free of focal defects. The gallbladder and pancreas demonstrate no abnormali ty. The adrenal glands are normal. The kidneys demonstrate no evidence of solid renal mass or hydrone phrosis. No free fluid or abdominal masses are identified. No para-aortic adenopathy is seen. PELVIS: No evidence of free fluid or pelvic mass. No abnormally enlarged inguinal or retroperitoneal lymph no elsy are present. The bladder is unremarkable. Prostatic calcifications are present. THORACIC AORTA: The thoracic aortic root is normal with normal branching of the great vessels. There is no evidence of aneurysm or dissection. ABDOMINAL AORTA: The aorta is normal in caliber without aneurysm or dissection. The renal arteries are patent bilater ally. The proximal celiac and superior mesenteric arteries are patent and normal in diameter. PELVIC VESSELS: There is atherosclerotic calcifications without significant stenosis at the common iliac arteries fernie aterally. The internal iliac and external iliac vessels are patent without aneurysm or stenosis. CONCLUSION: Mild atherosclerotic calcifications at the common iliac arteries. An area of significant stenosis or dissection is not seen throughout the chest, abdomen, or pelvis. Margarito Cramer MD on July 13, 2017 at 20:44 Board Certified Radiologist. This report was verified electronically.
--- NOTE | 2017-07-13 21:32 | EKG ---
Date Performed: 07/13/2017 Time Performed: 15:46:37 PTAGE: 61 years EKG: Sinus rhythm LEFT VENTRICULAR HYPERTROPHY AND ST-T CHANGE ABNORMAL ECG Compared to prior tracing no significant c missy DOCTOR: Nery Buckner Interpretating Date/Time 07/13/2017 21:31:07
[2017-07-13] MEDS ORDERED: hydrALAZINE HCL 25 MG TAB PO ONE (22:00)
[2017-07-13] MEDS ORDERED: CARVEDILOL 12.5 MG TAB PO ONE (22:00)
== END 2017-07-13 22:30 | disposition home or self-care (01) ==
LOC: NEPC 15:13
DX: I16.0 Hypertensive urgency (principal); R11.2 Nausea with vomiting, unspecified; M54.2 Cervicalgia; R00.0 Tachycardia, unspecified; D64.9 Anemia, unspecified; E87.6 Hypokalemia; I25.10 Atherosclerotic heart disease of native coronary artery without angina pectoris; I51.7 Cardiomegaly; R94.31 Abnormal electrocardiogram [ECG] [EKG]
CPT/HCPCS: 70450; 71010; 71275; 74174; 80053; 83690; 84484; 85025; 93005; 96374; 99285; J0360; Q9967

== ENCOUNTER 2017-10-12 11:27 | Emergency (ER) | payer MEDICAID, OTHER ==
[~2017-10-12] VITALS: Ht 190.5 cm; Wt 68.0 kg
[~2017-10-12 11:27] MED LIST changes: +HYDR-3799 PO
[2017-10-12 11:28] VITALS: BP 245/116; PULSE 109; RESP 18; TEMP 99.1; O2SAT 99
[2017-10-12 11:51] VITALS: BP 243/116; PULSE 104; RESP 28; O2SAT 99
[2017-10-12] MEDS ORDERED: CORE25TA PO (12:00)
[2017-10-12] MEDS ORDERED: SODIUM CHLOR 0.9% 1000 ML INJ 1,000 ML IV ONE (12:09)
[2017-10-12] MEDS ORDERED: ONDANSETRON HCL 4 MG/2 ML VIAL IM ONE (12:15)
[2017-10-12] MEDS ORDERED: cloNIDine HCL 0.2 MG TAB PO ONE (12:15)
--- NOTE | 2017-10-12 12:31 | PD ---
HPI Chief Complaint: Headache Time Seen by Provider: 12:02 Travel History International Travel<30 days: No Contact w/Intl Traveler<30days: No Traveled to known affect area: No History of Present Illness HPI 62-year-old male presents emergency department with his son complaining of very high blood pressure and headache that started last night while patient was lying in bed. States that as he was lying in bed he developed a headache on his left frontoparietal region and eye that was severe. He is also complaining of nausea without vomiting. Denies fever, chills, chest pain, shortness of breath. He denies dizziness, weakness, abdominal pain. Patient is blind so he does not complain of visual changes. Patient states that this has been the worst headache that has had but does not describe this as a thunderclap. He says he takes lisinopril and carvedilol for his blood pressure. He is unsure of the other medications that he takes. Patient states compliance with medications and his son administers them. PFSH Past Medical History Cancer: No Cardiovascular Problems: Yes Congestive Heart Failure: Yes Diabetes: Yes Patient Takes Glucophage: Yes (in am today ) Diminished Hearing: No Endocrine: No Genitourinary: No Hypertension: Yes Immune Disorder: No Neurologic: No Psychiatric: No Reproductive: No Immunizations Current: Yes Sickle Cell Disease: No Past Surgical History Other Surgery: Yes (right leg ) Social History Alcohol Use: No Tobacco Use: No Substance Use: No Allergies-Medications (Allergen,Severity, Reaction): Coded Allergies: No Known Allergies (Verified Allergy, Unknown, 07/13/17) Reported Meds & Prescriptions Reported Meds & Active Scripts Active Hydralazine HCl 25 Mg Tablet 50 Mg PO QID Amlodipine (Amlodipine Besylate) 10 Mg Tab 10 Mg PO DAILY Lisinopril 40 Mg Tab 40 Mg PO DAILY Atorvastatin (Atorvastatin Calcium) 40 Mg Tab 40 Mg PO HS Glipizide 5 Mg Tab 5 Mg PO BIDAC Take 30 minutes before a meal Hydrochlorothiazide 12.5 Mg Cap 12.5 Mg PO BID Acetazolamide 250 Mg Tab 250 Mg PO QID Brimonidine Opth Drops (Brimonidine Tartrate) 0.2% Soln 1 Drop EACH EYE TID Latanoprost Opth Drops (Latanoprost) 0.005% Drops 1 Drop EACH EYE HS Refrigerate until opened. Cosopt Opth Drops (Dorzolamide-Timolol Opth Drops) 22.3-6.8 Mg/Ml Soln 1 Drop EACH EYE BID Nitrostat SL (Nitroglycerin) 0.4 Mg Subl 0.4 Mg SL Q5M Reported Coreg (Carvedilol) 25 Mg Tab 25 Mg PO Q12HR Review of Systems Except as stated in HPI: all other systems reviewed are Neg Physical Exam Narrative GENERAL: Well-developed well-nourished in no apparent distress SKIN: Focused skin assessment warm/dry. HEAD: Atraumatic. Normocephalic. EYES: Pupils equal and round. No scleral icterus. Left eye- drainage, significant cataracts bilateral. Pt is blind and unable to see light or shadows. ENT: No nasal bleeding or discharge. Mucous membranes pink and moist. NECK: Trachea midline. No JVD. No midline tenderness CARDIOVASCULAR: Regular rate and rhythm. No murmur appreciated. RESPIRATORY: No accessory muscle use. Clear to auscultation. Breath sounds equal bilaterally. GASTROINTESTINAL: Abdomen soft, non-tender, nondistended. MUSCULOSKELETAL: No obvious deformities. No clubbing. No cyanosis. No edema. NEUROLOGICAL: Awake and alert. No obvious cranial nerve deficits aside from the mentioned above no PERRLA, directed EOMI. no unusual deviations of gaze. Motor grossly within normal limits. Normal speech. PSYCHIATRIC: Appropriate mood and affect; insight and judgment normal. Data Data Last Documented VS Vital Signs Date Time Temp Pulse Resp B/P (MAP) Pulse Ox O2 Delivery O2 Flow Rate FiO2 10/12/17 12:53 99 Room Air 10/12/17 11:51 104 28 243/116 (158) 10/12/17 11:28 99.1 Orders Orders Complete Blood Count With Diff (10/12/17 12:09) Comprehensive Metabolic Panel (10/12/17 12:09) Prothrombin Time / Inr (Pt) (10/12/17 12:09) Act Partial Throm Time (Ptt) (10/12/17 12:09) Ct Brain W/O Iv Contrast(Rout) (10/12/17 12:09) Ecg Monitoring (10/12/17 12:09) Iv Access Insert/Monitor (10/12/17 12:09) Oximetry (10/12/17 12:09) Oxygen Administration (10/12/17 12:09) Ondansetron Inj (Zofran Inj) (10/12/17 12:15) Sodium Chlor 0.9% 1000 Ml Inj (Ns 1000 M (10/12/17 12:09) Troponin I (10/12/17 12:09) Ckmb (Isoenzyme) Profile (10/12/17 12:09) Magnesium (Mg) (10/12/17 12:09) Clonidine (Catapres) (10/12/17 12:15) Chest, Single Ap (10/12/17 ) Ed Discharge Order (10/12/17 14:32) Labs Laboratory Tests Test 10/12/17 12:24 White Blood Count 10.6 TH/MM3 Red Blood Count 3.99 MIL/MM3 Hemoglobin 11.4 GM/DL Hematocrit 34.6 % Mean Corpuscular Volume 86.7 FL Mean Corpuscular Hemoglobin 28.6 PG Mean Corpuscular Hemoglobin Concent 33.0 % Red Cell Distribution Width 14.8 % Platelet Count 311 TH/MM3 Mean Platelet Volume 8.0 FL Neutrophils (%) (Auto) 58.5 % Lymphocytes (%) (Auto) 32.9 % Monocytes (%) (Auto) 5.6 % Eosinophils (%) (Auto) 2.3 % Basophils (%) (Auto) 0.7 % Neutrophils # (Auto) 6.2 TH/MM3 Lymphocytes # (Auto) 3.5 TH/MM3 Monocytes # (Auto) 0.6 TH/MM3 Eosinophils # (Auto) 0.2 TH/MM3 Basophils # (Auto) 0.1 TH/MM3 CBC Comment DIFF FINAL Differential Comment Prothrombin Time 10.5 SEC Prothromb Time International Ratio 1.0 RATIO Activated Partial Thromboplast Time 25.9 SEC Blood Urea Nitrogen 22 MG/DL Creatinine 1.32 MG/DL Random Glucose 112 MG/DL Total Protein 7.4 GM/DL Albumin 3.3 GM/DL Calcium Level 8.7 MG/DL Magnesium Level 1.9 MG/DL Alkaline Phosphatase 94 U/L Aspartate Amino Transf (AST/SGOT) 29 U/L Alanine Aminotransferase (ALT/SGPT) 79 U/L Total Bilirubin 0.4 MG/DL Sodium Level 144 MEQ/L Potassium Level 3.6 MEQ/L Chloride Level 113 MEQ/L Carbon Dioxide Level 22.8 MEQ/L Anion Gap 8 MEQ/L Estimat Glomerular Filtration Rate 66 ML/MIN Total Creatine Kinase 71 U/L Troponin I 0.02 NG/ML MDM Medical Decision Making Medical Screen Exam Complete: Yes Emergency Medical Condition: Yes Differential Diagnosis SAH, ICH, accelerated HTN, Hypertensive urgency, hypertensive emergency Narrative Course 62-year-old male with a history of high blood pressure presents emergency department with his son complaining of very high blood pressure and headache that started last night while patient was lying in bed. States that as he was lying in bed he developed a headache on his left frontoparietal region and eye that was severe. Patient states that his headache started last night and lasted several hours. He is unable to tell me how long it actually lasted. He does deny dizziness, weakness, chest pain, shortness of breath, vomiting. Note that patient and son are rather poor historians. We requested the assistance of the pharmacist regarding medication reconciliation. Blood pressures at initial evaluation 245/116, heart rate 109, 99.1 oral temperature. Patient resting comfortably in bed with the only complaint of mild nausea. Son and patient states compliance with blood pressure medications. Physical exam findings consistent with a well-developed well-nourished 62-year- old male in no acute distress. Patient not complaining of headache at presentation, only mild residual nausea. No obvious cranial nerve deficits although patient is blind so unable to assess for ocular ocular motor movements on-demand. No obvious neuro deficits. Upon review of the EMR it appears the patient does have congestive heart failure , glaucoma, history of very elevated blood pressure, diabetes. Clonidine 0.2 mg has successfully decrease his blood pressure to 176/89, patient is asymptomatic. HR 92 Patient will be discharged and advised to take his medications as prescribed. Patient and son do not remember the discussion regarding the [facility] from previous encounters here at the hospital. I strongly advised that the follow-up as discussed today and previously. Diagnosis Primary Impression: Accelerated hypertension Referrals: [facility] Additional Instructions: Follow-up with [facility] this week. Take all medications as prescribed. Your blood pressure pressure medications include amlodipine, Coreg, hydralazine , and lisinopril. Please ensure he take these medications as prescribed. If your symptoms persist or worsen return to the emergency department. Disposition: 01 DISCHARGE HOME Condition: Stable Bina Marie Oct 12, 2017 12:31
[2017-10-12 12:40] LABS: AUTOMATED NEUTROPHIL # 6.2 TH/MM3 (1.8-7.7); BASOPHIL # 0.1 TH/MM3 (0-0.2); BASOPHIL % 0.7 % (0.0-2.0); EOSINOPHIL # 0.2 TH/MM3 (0-0.4); EOSINOPHIL % 2.3 % (0.0-4.0); HEMATOCRIT 34.6 % (39.0-51.0); HEMOGLOBIN 11.4 GM/DL (13.0-17.0); LYMPH % 32.9 % (9.0-44.0); LYMPHOCYTE # 3.5 TH/MM3 (1.0-4.8); MEAN CELL VOLUME 86.7 FL (80.0-100.0); MEAN CORPUSCULAR HEMOGLOBIN 28.6 PG (27.0-34.0); MONO % 5.6 % (0.0-8.0); MONOCYTE # 0.6 TH/MM3 (0-0.9); NEUT % 58.5 % (16.0-70.0); PLATELET COUNT 311 TH/MM3 (150-450); RED BLOOD COUNT 3.99 MIL/MM3 (4.50-5.90); RED CELL DISTRIBUTION WIDTH 14.8 % (11.6-17.2); WHITE BLOOD COUNT 10.6 TH/MM3 (4.0-11.0)
[2017-10-12 12:50] LABS: PROTHROMBIN TIME - PATIENT 10.5 SEC (9.8-11.6)
[2017-10-12 13:25] LABS: ALBUMIN 3.3 GM/DL (3.4-5.0); AST (GOT) 29 U/L (15-37); BICARBONATE 22.8 MEQ/L (21.0-32.0); BLOOD UREA NITROGEN 22 MG/DL (7-18); CALCIUM 8.7 MG/DL (8.5-10.1); CHLORIDE 113 MEQ/L (98-107); CREATININE 1.32 MG/DL (0.60-1.30); GLOMERULAR FILTRATION RATE 66 ML/MIN (>89); GLUCOSE,RANDOM 112 MG/DL (74-106); MAGNESIUM 1.9 MG/DL (1.5-2.5); SODIUM (NA) 144 MEQ/L (136-145)
[2017-10-12 13:30] LABS: ALKALINE PHOSPHATASE 94 U/L (45-117); ALT (GPT) 79 U/L (12-78); TOTAL BILIRUBIN ADULT 0.4 MG/DL (0.2-1.0); TOTAL PROTEIN 7.4 GM/DL (6.4-8.2); TROPONIN I 0.02 NG/ML (0.02-0.05)
--- NOTE | 2017-10-12 13:53 | RADRPT ---
EXAM DATE/TIME: 10/12/2017 12:52 [facility] COMPARISON: CHEST SINGLE AP, July 13, 2017, 15:57. INDICATIONS : Headache, vomiting, chest and abdominal discomfort MEDICAL HISTORY : Congestive heart failure. Hypertension SURGICAL HISTORY : None. ENCOUNTER: Initial ACUITY: 1 day PAIN SCORE: 2/10 LOCATION: Bilateral chest FINDINGS: A single view of the chest demonstrates the lungs to be symmetrically aerated without evidence of mas s, infiltrate or effusion. The cardiomediastinal contours are unremarkable. Osseous structures are intact. CONCLUSION: No acute disease. Michael Sheffield Jr., MD on October 12, 2017 at 13:51 Board Certified Radiologist. This report was verified electronically.
--- NOTE | 2017-10-12 14:19 | RADRPT ---
EXAM DATE/TIME: 10/12/2017 13:31 [facility] COMPARISON: CT BRAIN W/O CONTRAST, July 13, 2017, 16:05. INDICATIONS : Headaches for two days. RADIATION DOSE: 56.35 CTDIvol (mGy) MEDICAL HISTORY : Cardiovascular disease. Hypertension. Diabetes mellitus type 2.DVT SURGICAL HISTORY : None. ENCOUNTER: Initial ACUITY: 2 days PAIN SCALE: 8/10 LOCATION: Bilateral cranial TECHNIQUE: Multiple contiguous axial images were obtained of the head. Using automated exposure control and adj ustment of the mA and/or kV according to patient size, radiation dose was kept as low as reasonably a chievable to obtain optimal diagnostic quality images. DICOM format image data is available electro nically for review and comparison. FINDINGS: CEREBRUM: The ventricles are normal for age. No evidence of midline shift, mass lesion, hemorrhage or acute in farction. No extra-axial fluid collections are seen. POSTERIOR FOSSA: The cerebellum and brainstem are intact. The 4th ventricle is midline. The cerebellopontine angle i s unremarkable. EXTRACRANIAL: The visualized portion of the orbits is intact. SKULL: The calvaria is intact. No evidence of skull fracture. CONCLUSION: Negative exam. Killian Reyes MD on October 12, 2017 at 14:15 Board Certified Radiologist. This report was verified electronically.
[2017-10-12 15:00] VITALS: BP 176/89
== END 2017-10-12 17:09 | disposition home or self-care (01) ==
LOC: NEPC 11:27
DX: I10 Essential (primary) hypertension (principal); E11.9 Type 2 diabetes mellitus without complications; I50.9 Heart failure, unspecified
CPT/HCPCS: 70450; 71045; 80053; 82550; 83735; 84484; 85025; 85610; 85730; 96360; 96372; 99285; J2405; J7030